=== PATIENT | male | born 1955 | race Caucasian/White ===

== ENCOUNTER → 2016-10-28 | Outpatient (CLI) | payer BC ==
--- NOTE | 2016-10-28 15:09 | Diagnostic Imaging Report ---
PROCEDURE: US Gallbladder. TECHNIQUE: Multiple real-time grayscale images were obtained over the right upper quadrant in various projections. INDICATION: R94.5, elevated liver enzymes. Jaundice. FINDINGS: The visualized portions of the pancreas appear unremarkable. The liver demonstrates no focal lesion and is normal in size. No intrahepatic biliary dilatation. The CBD is 4 mm in caliber. The gallbladder demonstrates no stones or wall thickening. There is a 3 mm hyperechoic focus near the neck of the gallbladder suggestive of a polyp. No pericholecystic fluid. Sonographic Burden's sign is reportedly negative. No fluid collection in the upper right abdomen. The right kidney is 12 cm in length with no hydronephrosis or focal lesion. IMPRESSION: A 3 mm polyp near the gallbladder neck. Dictated by: Dictated on workstation # [id number]
== END ==
LOC: RAD 14:24
PROVIDERS: ATTEND Family Medicine
DX: R94.5 Abnormal results of liver function studies (principal)
CPT/HCPCS: 76705

== ENCOUNTER → 2016-10-29 | Outpatient (CLI) | payer BC ==
[~2016-10-29] MED LIST: CATHETER FLUSH 10 ML SYR IV PRN
--- NOTE | 2016-10-29 16:05 | Diagnostic Imaging Report ---
INDICATION: Right upper quadrant pain, abnormal liver function test. COMPARISON: Ultrasound 10/28/2016. TECHNIQUE: Scintigraphic images were obtained following the intravenous administration of 5.21 mCi of technetium 99m labeled Choletec. Ejection fraction was calculated following the administration of a fatty meal. Region of interest was drawn around the gallbladder and a time/activity curve was generated. DISCUSSION: Hepatic uptake and excretion are normal. There is normal appearance of activity within the gallbladder at 25 minutes and within the small bowel at 20 minutes. No retention activity seen within the common duct. Following the administration of a fatty meal, the gallbladder ejection fraction was calculated at 98%, normal. IMPRESSION: 1. Normal HIDA scan. 2. Normal gallbladder ejection fraction. Dictated by: Dictated on workstation # [id number]
== END ==
LOC: CARD 13:33
PROVIDERS: ATTEND Family Medicine
DX: R94.5 Abnormal results of liver function studies (principal)
CPT/HCPCS: 78227

== ENCOUNTER → 2022-08-18 | Outpatient (CLI) | payer MEDICARE, OTHER | LOC: CARD 11:00 | PROVIDERS: ATTEND Internal Medicine Cardiovascular Disease | DX: I11.9 Hypertensive heart disease without heart failure (principal); I35.8 Other nonrheumatic aortic valve disorders | CPT/HCPCS: 93306 ==

== ENCOUNTER → 2022-10-04 | Outpatient (CLI) | payer MEDICARE, OTHER ==
[~2022-10-04] VITALS: Ht 182 cm; Wt 79.0 kg
[~2022-10-04] MED LIST changes: -CATHETER FLUSH 10 ML SYR IV PRN; +CATHETER FLUSH 10 ML SYR IVP PRN
[2022-10-04 09:17] VITALS: BP 130/78
--- NOTE | 2022-10-04 12:26 | Cardiology Stress Test Report ---
Stress Test Report Date of Procedure/Referring: Date of Procedure: Oct 04, 2022 PCP Ady Ceballos MD Admitting Physician Admitting Physician: Attending Physician: Sergei Odonnell MD Indications: HTN Baseline Heart Rate: 62 Baseline Blood Pressure: Blood Pressure Systolic: 130 Blood Pressure Diastolic: 78 Vital Signs Date Time Temp Pulse Resp B/P (MAP) Pulse Ox O2 Delivery O2 Flow Rate FiO2 10/04/22 09:17 62 16 130/78 (95) 97 Room Air Baseline Vital Signs Vital Signs Date Time Temp Pulse Resp B/P (MAP) Pulse Ox O2 Delivery O2 Flow Rate FiO2 10/04/22 09:17 62 16 130/78 (95) 97 Room Air Baseline EKG: Baseline EKG: NSR Summary: After explaining the procedure and details to the patient, he signed the consent and was brought to the stress nuclear laboratory. Patient exercised on standard Jayjay protocol, EKG, heart rate and blood pressure were monitored continuously, resting and stress doses of radio tracer were injected, imaging was acquired and reviewed in the short axis, horizontal long axis and vertical long axis views Patient was able to exercise for a total of 9 minutes on Jayjay protocol, METs 10.5 Maximum heart rate 135 Maximum blood pressure 181/90 Stress EKG, Minimal nondiagnostic changes Recovery EKG, Return to baseline TID: 1.08 SSS: 0 SDS: 0 EF: 52 Conclusion: 1. Good exercise tolerance for a total of 9 minutes on standard Jayjay protocol, 10.5 METS achieving 89% of maximum expected heart rate 2. Baseline hypertension with hypertensive response to exercise return to baseline during recovery 3. Nondiagnostic EKG changes with exercise return to baseline during recovery 4. Occasional PVCs noted during exercise resolved in recovery 5. No significant ischemia or infarction noted on SPECT images 6. Normal left ventricular size, ejection fraction 52% Copy Copies To 1: ADY CEBALLOS MD, BASHAR J MD Oct 04, 2022 12:26
== END ==
LOC: CARD 06:32
PROVIDERS: ATTEND Internal Medicine Cardiovascular Disease
DX: I10 Essential (primary) hypertension (principal); I25.10 Atherosclerotic heart disease of native coronary artery without angina pectoris
CPT/HCPCS: 78452; 93017; A9502